=== PATIENT | male | born 1955 | race African-American/Black ===

== ENCOUNTER 2017-02-18 16:05 | Inpatient (IN) | payer MEDICARE, OTHER ==
--- NOTE | ~2017-02-18 | CO ---
Unit #: [id number] #: [id number] Patient: MILENA MONAE [id number] [facility] [address]. [place], [place] [address] [id number] I MR#: [id number] NAME: MILENA MONAE ROOM: 317 Age: 62 Sex: M Admission Date: 02/18/2017 : 1955 Attending Physician: Paco Bautista M.D. Primary Care Physician: [facility] Consultation Date: 02/20/2017 CONSULTATION REPORT REASON FOR CONSULTATION Alcohol abuse and confusion. HISTORY OF PRESENT ILLNESS Mr. Kennedy is a 62-year-old male, seen in room 317 bed 1 on 02/20/2017 at [facility]. The patient was confused. Dressed in hospital attire. The patient was trying to get out of the bed, unable to follow commands, unable to give any history, agitation, paranoid. The patient's information obtained from the nursing staff also. Chart reviewed. Labs reviewed. The patient was admitted on 02/18/2017 with right-sided weakness and hematemesis. The patient has a history of HIV/AIDS, hepatitis C, cirrhosis, alcohol abuse, hypertension. The patient was complaining of dysuria and worsening of right-sided weakness. The patient is a poor historian. PAST PSYCHIATRIC HISTORY Remarkable for history of alcohol abuse. No history of any inpatient psychiatric treatment known at this time. MEDICATIONS HISTORY The patient at home is on aspirin, Coreg, gabapentin, lisinopril, metformin, hydralazine. ALLERGIES None. MEDICAL HISTORY Remarkable for history of hepatitis C, AIDS/HIV, history of cirrhosis, atrial fibrillation, hypertension, diabetes, history of alcohol abuse. FAMILY HISTORY AND SOCIAL HISTORY The patient has a poor support system. No known history of any abuse. History of alcohol abuse as mentioned above. Denied use of any street drugs. REVIEW OF SYSTEMS Complete review of systems is unobtainable at this time. MENTAL STATUS EXAMINATION The patient's vital signs; temperature 97.8, pulse 69, respirations 18, blood pressure 170/99, oxygen saturation 99%. General appearance; the patient dressed in hospital attire, uncooperative, incoherent, somewhat agitated. Unable to give any reliable history. Attention span and concentration, poor. Speech, disorganized. Orientation, unable to Unit #: [id number] #: [id number] Patient: MILENA MONAE assess. Mood and affect, labile. Thought process, unable to assess. Thought content, guarded, paranoid. Recent and remote memory, poor. Language, poor. Fund of knowledge, impaired. Insight and judgment, impaired. DIAGNOSES Psychiatric: Delirium, F05; alcohol use disorder, severe, F10.20. Secondary diagnosis: Deferred. Medical diagnosis: Please refer to H and P. Stressors: Psychosocial stressor. ASSESSMENT AND PLAN 1. Recommending at this time to continue with current treatment and also advised one-on-one monitoring for safety of the patient. 2. If needed, consider low dose of Haldol for the above-mentioned symptoms of delirium. Continue with [facility] protocol. Please feel free to call if any questions, telephone #[phone]. Dictated by... Robert Villafuerte/jacinto TD: 02/22/2017 04:05 JOB #: [id number] CONSULTATION REPORT Page 1 of 1 X Dinesh Cortés MD CONSULTATION REPORT
--- NOTE | ~2017-02-18 | CT4 ---
[facility] A Service of [facility] RADIOLOGY TEXT RESULTS PATIENT: MIELNA MONAE LOCATION: C3A 317-01 : 59 UNIT #: [id number] AGE: [address]: Kiley Gross MD SEX: M ORDER DR: [id number] [facility] [address]. [place], [place] [address] [id number] E MR#: [id number] Acc #: [id number] NAME: MILENA MONAE : 1955 SEX: M STUDY DATE/TIME: 02/18/2017 18:40 UNIT: SABAS ROOM: STUDY DESCRIPTION: CT Abd and Pelv Wo Cont Attending Physician: Akbar Giles M.D. Ordering Physician: Akbar Giles M.D. Primary Care Physician: [facility] MEDICAL IMAGING REPORT This report is preliminary unless electronic signature is present EXAM CT abdomen and pelvis without IV contrast COMPARISON February 24, 2016 and February 10, 2006. INDICATION 62-year-old male with dysuria for 2 days. History of cirrhosis and HIV. Hepatitis C. FINDINGS Axial CT imaging of the abdomen and pelvis was performed without IV contrast. Coronal and sagittal reformats were constructed. Lack of IV contrast limits evaluation of adenopathy, vasculature and viscera. This CT exam was performed with one or more of the following radiation dose reduction techniques: automatic exposure control, adjustment of mA and/or kV according to patient size, and iterative reconstruction. Tiny fat-containing umbilical hernia. Multilevel mild to moderate degenerative facet disease of the lumbar spine. Multilevel disc height loss of the lumbar spine with marked degenerative endplate change at L2-L3 and to a lesser extent at L3-L4. Large posterior disc osteophyte complex is noted L2-L3, L3-L4 with small posterior disc protrusion L4-L5. Findings suggestive of prior CABG, incompletely imaged. Sternotomy wires are incompletely imaged. Sternotomy line is still visible and is well corticated. No evidence of sternal dehiscence on the current exam. The gallbladder is fluid distended but otherwise unremarkable. Unenhanced liver, pancreas, spleen and adrenal glands are unremarkable. No evidence of hydronephrosis or hydroureter. No renal or ureteral calculi. Urinary bladder is unremarkable. Top normal size of the prostate gland measuring up to 4.7 cm transverse. Large stool burden seen in the left colon and STS. [facility] A Service of [facility] RADIOLOGY TEXT RESULTS PATIENT: MLIENA MONAE LOCATION: C3A 317-01 : 59 UNIT #: [id number] AGE: [address]: Kiley Gross MD SEX: M ORDER DR: rectal vault. No evidence of acute inflammatory change of the bowel. No evidence of bowel obstruction. The appendix is not definitely seen. There are no secondary findings of an acute appendicitis. It is questioned if there is a retrocecal appendix, not well evaluated on the current study due to crowding of bowel loops. No free fluid or pneumoperitoneum. The abdominal aorta is tortuous but normal in caliber. Arterial calcifications extend into the iliac arteries and proximal femoral arteries. No adenopathy is seen on this noncontrast exam. IMPRESSION 1. No acute findings in the abdomen, pelvis or imaged lower chest. 2. Multilevel severe degenerative disc and endplate changes of the lumbar spine as described in the body of the report with multilevel posterior disc protrusions. 3. Changes suggestive of prior CABG, incompletely imaged. 4. Fluid distension of the gallbladder without secondary findings of an acute cholecystitis. 5. The appendix is favored to be retrocecal in location but not well evaluated. There are no secondary findings to suggest an acute appendicitis. Clinical correlation recommended. 6. Top normal size of the prostate gland with normal shape and contour. This may reflect mild benign prostatic hypertrophy. 7. Large stool burden in the left colon and rectal vault. No evidence of bowel obstruction or acute inflammatory change. 8. Not mentioned specifically in the body of the report there is likely a small left scrotal hydrocele. Dictated by... Jose Solorio M.D. THIS IS AN ELECTRONICALLY VERIFIED REPORT Jose Solorio M.D. at 02/19/2017 3:01 PM KELIN/sherita TD: 02/18/2017 23:10 JOB #: [id number] MEDICAL IMAGING REPORT Page 1 of 1 COPY
--- NOTE | ~2017-02-18 | MR18 ---
[facility] A Service of [facility] & [facility] RADIOLOGY TEXT RESULTS PATIENT: MILENA MONAE LOCATION: C3A 317-01 : 59 UNIT #: [id number] AGE: [address]: Paco Bautista MD SEX: M ORDER DR: [id number] [facility] [address] [place], [place] [address] [id number] I MR#: [id number] Acc #: [id number] NAME: MILENA MONAE : 1955 SEX: M STUDY DATE/TIME: 02/20/2017 14:05 UNIT: C3A PCU ROOM: 317 STUDY DESCRIPTION: MR Brain Wo Contrast Attending Physician: Paco Bautista M.D. Ordering Physician: Paco Bautista M.D. Primary Care Physician: [facility], [facility]. MRI CENTER REPORT This report is preliminary unless electronic signature is present. EXAM Brain MRI without HISTORY Altered mental status. Patient combative despite having been given Ativan. Technologist notes this is a very limited study submitted for review. COMMENT MRI of the brain was performed without contrast. Delayed sequences were utilized, and the study is still very limited. Axial diffusion imaging obtained as well as axial BLADE T1 and T2 and FLAIR imaging. There is a prior from 12/22/2015. There is no evidence for a recent ischemic insult on the diffusion series. There is no gross midline shift or extraaxial fluid collection. There are probably chronic lacunar insults in the basal ganglia to thalami and probably at least moderate white matter disease due to small vessel disease. Signal abnormality in the brainstem is harder to characterize. I suspect there is some left-sided Wallerian degeneration with asymmetric volume loss in the left cerebral peduncle, but there is probably also small vessel disease involving the brainstem. At least some of this disease was present previously. I cannot compare to prior accurately, given the amount of motion. There is fluid or inflammatory change in the right side mastoid air cells. IMPRESSION 1. Severely limited study due to the patient's motion discussed above. 2. No evidence for a recent ischemic insult on the diffusion series. 3. Findings are most suggestive of moderate probable sequelae of small STS. [facility] A Service of [facility] & [facility] RADIOLOGY TEXT RESULTS PATIENT: MILENA MONAE LOCATION: A 317-01 : 59 UNIT #: [id number] AGE: [address]: Paco Bautista MD SEX: M ORDER DR: vessel disease. STAT * RESULT Dictated by... Sarah Taylor M.D. THIS IS AN ELECTRONICALLY VERIFIED REPORT Sarah Taylor M.D. at 02/20/2017 7:19 PM Marin TD: 02/20/2017 17:55 JOB #: [id number] MRI CENTER REPORT Page 1 of 1 COPY
--- NOTE | ~2017-02-18 | CT71 ---
[facility] A Service of [facility] RADIOLOGY TEXT RESULTS PATIENT: MILENA MONAE LOCATION: A 317-01 : 59 UNIT #: [id number] AGE: [address]: Paco Bautista MD SEX: M ORDER DR: [id number] [facility] [address]. [place], [place] [address] [id number] E MR#: [id number] Acc #: [id number] NAME: MILENA MONAE : 1955 SEX: M STUDY DATE/TIME: 02/18/2017 18:38 UNIT: [facility] ROOM: STUDY DESCRIPTION: CT Head Wo Contrast Attending Physician: Akbar Giles M.D. Ordering Physician: Akbar Giles M.D. Primary Care Physician: [facility], [facility]. MEDICAL IMAGING REPORT This report is preliminary unless electronic signature is present EXAM CT head 02/18/2017. HISTORY Right sided weakness today. Called EMS for burning urination x 2 days. History of cirrhosis, HIV, atrial fibrillation, hepatitis C, diabetes. TECHNIQUE This CT exam was performed with one or more of the following radiation dose reduction techniques: automatic exposure control, adjustment of mA and/or kV according to patient size, and iterative reconstruction. CT head performed skull base through vertex without intravenous contrast. Comparison 12/22/2015. FINDINGS Brainstem unremarkable. Cerebellum and cerebral hemispheres show overall preservation of cristobal matter - white matter differentiation. No hemorrhage. No evidence of acute cortical ischemia. The midline structures are nondisplaced. The basal ganglia show no acute abnormality. There is a chronic lacunar infarct in the left putamen. No acute basal ganglia abnormality. Ventricles, cisterns and sulci show mild generalized enlargement. Mild periventricular deep white matter tract probable sequelae of chronic microvascular ischemia. No intra or extraaxial mass effect or abnormal intracranial fluid collection. Cavernous carotid distal vertebral arterial calcifications. Intraorbital soft tissues unremarkable. Visualized paranasal sinuses clear. Opacification of some inferior right mastoid air cells with some small air-fluid levels present suggesting acute mastoiditis. IMPRESSION 1. No acute abnormality is seen in the brain. If the patient has STS. [facility] A Service of [facility] RADIOLOGY TEXT RESULTS PATIENT: MILENA MONAE LOCATION: C3A 317-01 : 59 UNIT #: [id number] AGE: [address]: Paco Bautista MD SEX: M ORDER DR: ongoing neurologic symptoms, consider follow up imaging preferably with MRI if the patient is a candidate. 2. Chronic changes include the following: Mild periventricular deep white matter tract probable sequelae of chronic microvascular ischemia, chronic lacunar infarct left putamen, extensive cavernous carotid distal vertebral arterial calcifications, mild generalized atrophy. 3. Mucosal thickening, opacification and air fluid levels in some right mastoid air cells. New compared to prior study and indicative of acute mastoiditis. Correlate clinically. Consider ENT consultation followup for management. Dictated by... Saji Mishra M.D. THIS IS AN ELECTRONICALLY VERIFIED REPORT Saji Mishra M.D. at 02/21/2017 8:26 AM iHram TD: 02/18/2017 23:07 JOB #: [id number] MEDICAL IMAGING REPORT Page 1 of 1 COPY
--- NOTE | ~2017-02-18 | EKG ---
PATIENT: MILENA MONAE UNIT #: [id number] Ventricular Rate: 103 BPM Atrial Rate: 103 BPM P-R Interval: 150 ms QRS Duration: 94 ms Q-T Interval: 370 ms QTC Calculation(Bezet): 484 ms P [place]: 51 degrees Calculated R [place]: 88 degrees Calculated T [place]: 59 degrees Diagnosis Line: Sinus tachycardia Diagnosis Line: Poor R wave progression questionable lead position Diagnosis Line: or body habitus Diagnosis Line: Nonspecific ST and T wave abnormality Diagnosis Line: Abnormal ECG Diagnosis Line: When compared with ECG of 22-DEC-2015 12:00, Diagnosis Line: ST abnormalities worse Diagnosis Line: Confirmed by DAFNE JACOBSON MD ([id number]) on Diagnosis Line: 02/18/2017 11:00:23 PM INTERPRETING MD: MELISA
--- NOTE | ~2017-02-18 | CO ---
Unit #: [id number] #: [id number] Patient: MILENA MONAE [id number] [address] [place], [place] [address] [id number] I MR#: [id number] NAME: MILENA MONAE ROOM: [facility] Age: Sex: M Admission Date: 02/18/2017 : 1955 Attending Physician: Kiley Gross M.D. Primary Care Physician: [facility] CONSULTATION REPORT REASON FOR CONSULTATION Management of HIV/AIDS. HISTORY OF PRESENT ILLNESS This is a 62-year-old male who is a very poor historian. He has nonspecific complaints. The chart has been reviewed, as well as continued interviews with the patient. Per the chart, the patient has a history of HIV/AIDS, hepatitis C, alcohol abuse, cirrhosis and CVA. He tells me he came to the hospital because his blood glucose was low. The patient reports that he was not vomiting at home. He is unaware if he had any fever. He is unaware if he had any headache. He does report that he does have some mild abdominal pain, but no diarrhea. While the patient was in the emergency room he began to have episodes of hematemesis and was admitted for further evaluation. Workup did not show any fever or leukocytosis, but there was some concern that the patient had a urinary tract infection and a CT scan of the head was also done, which was concerning for sinusitis/mastoiditis. The patient was placed on Rocephin and infectious disease was asked to evaluate for further management. PAST MEDICAL HISTORY Unknown, except for that previously mentioned in history of present illness. HIV/AIDS. However, the patient reports that he has not had medications for a long period of time. He is unable to get any antiretroviral medications. PAST SURGICAL HISTORY Unknown. SOCIAL HISTORY The patient denies to me any alcohol abuse. However, it is noted that he does have a history of alcoholic cirrhosis. He denies to me any tobacco or IV drug abuse. ALLERGIES The patient denies any allergies, but he reports that he is unaware. CURRENT MEDICATIONS The patient is currently on Rocephin. No other antibiotics or steroids have been given. For other medications, please refer to the patient's MAR. REVIEW OF SYSTEMS Difficult to obtain as the patient is a poor historian and fairly nonspecific. Negative except for that previously mentioned in history of present illness. He again denies any headache. He is unaware if he has Unit #: [id number] #: [id number] Patient: MILENA MONAE any fever at home. He is unaware if he had any chills or sweats. He denied to me any urinary symptoms, but was fairly nonspecific. He does report some left lower extremity pain. PHYSICAL EXAMINATION GENERAL: This is an awake male in no apparent distress, who is resting in the bed. VITALS: Temperature 97.5, pulse 62, blood pressure 181/125 and respiratory rate 18. He has no frontal or maxillary sinusitis. HEENT: His pupils are sluggish. NECK: Supple. LUNGS: Clear to auscultation. Diminished in the bases, but no wheezes or rhonchi noted. HEART: S1 and S2. Regular rate and rhythm. ABDOMEN: Hypoactive bowel sounds. There is some tenderness in all four quadrants to palpation. EXTREMITIES: No clubbing, cyanosis or edema. He does not appear to have any nonhealing wounds. DIAGNOSTIC STUDIES LABORATORY: BUN 11, creatinine 0.9, sodium 135, potassium 3.1, chloride 97, CO2 31, bilirubin 1.6, AST 27, ALT 29, alkaline phosphatase 67, ammonia 20, lactic acid 2.3 which is up from admission of 2.2, alcohol level 111. INR 1.0. White blood cell count 6.5, hemoglobin 16.7, hematocrit 47.8, platelets 163. Urine tox screen is negative. Urinalysis shows white blood cells 10-25, 5-10 RBCs, negative nitrates, 1+ protein, glucose 500, yeast present. Blood cultures and urine cultures are currently pending. DICTATION STOPPED Dictated by... Vale Escobar A.P.R.N. for Sundar Donohue M.D. Virgilio TD: 02/19/2017 10:05 JOB #: [id number] CONSULTATION REPORT Page 1 of 1 X X CONSULTATION REPORT
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
--- NOTE | ~2017-02-18 | CR72 ---
[facility] A Service of [facility] & [facility] RADIOLOGY TEXT RESULTS PATIENT: MILENA MONAE LOCATION: [facility] : 59 UNIT #: [id number] AGE: [address]: Akbar Giles MD SEX: M ORDER DR: [id number] [facility] [address] [place], [place] [address] [id number] MR#: [id number] Acc #: [id number] NAME: MILENA MONAE : 1955 SEX: M STUDY DATE/TIME: 02/18/2017 17:41 UNIT: [facility] ROOM: STUDY DESCRIPTION: CR Chest Single View Portable Attending Physician: Akbar Giles M.D. Ordering Physician: Akbar Giles M.D. MEDICAL IMAGING REPORT This report is preliminary unless electronic signature is present EXAM Portable chest HISTORY Chest pain and right side weakness today. FINDINGS Cardiac and mediastinal contours are stable compared to 12/22/2015, including mildly prominent and tortuous aortic arch. Sternotomy. No airspace infiltrates or effusions. Mild elevation of the right hemidiaphragm. IMPRESSION No acute findings. Dictated by... Talha Botello M.D. THIS IS AN ELECTRONICALLY VERIFIED REPORT Talha Botello M.D. at 02/18/2017 11:52 PM DFL/pcl TD: 02/18/2017 22:21 JOB #: [id number] MEDICAL IMAGING REPORT Page 1 of 1 COPY
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
--- NOTE | ~2017-02-18 | CO ---
Unit #: [id number] #: [id number] Patient: MILENA MAYS [id number] [address] [place], [place] [address] [id number] MR#: [id number] NAME: MILENA MAYS ROOM: 317 Age: 62 Sex: M Admission Date: 02/18/2017 : 1955 Attending Physician: Paco Bautista M.D. Primary Care Physician: [facility] Consultation Date: 02/21/2017 CONSULTATION REPORT REASON FOR CONSULTATION Followup. DISCUSSION Mr. Antonino Mays is a 62-year-old male, seen in room 317 bed 1 on 02/21/2017. The patient dressed in hospital attire, sitting comfortably in a recliner chair, able to answer some of the question about time, place, and person, but still poor historian. The patient needing redirection, but no agitation. The patient has a sitter. The patient's vital signs; temperature 97.9, pulse 86, respirations 20, blood pressure 175/118, oxygen saturation 98%. The patient has a history of alcohol abuse. Still somewhat confused, therefore, needing a sitter. Denied any suicidal or homicidal ideation. REVIEW OF SYSTEMS Complete review of systems unremarkable except as mentioned above. MENTAL STATUS EXAMINATION Vital signs; temperature 97.9, pulse 86, respirations 20, blood pressure 175/118, oxygen saturation 100%. General appearance; the patient dressed in hospital attire, sitting comfortably in chair in a recliner. Attention span and concentration, poor. Speech is slow, long pauses. Orientation in self and place. Mood and affect, labile. Thought process, circumstantial. Thought content, guarded, paranoid, confused, but unable to answer question about suicidal or homicidal ideation. Recent and remote memory, impaired. Language fair. Fund of knowledge, poor. Insight and judgment, impaired. 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 ASSESSMENT AND PLAN 1. Supportive psychotherapy and psychoeducation provided to the patient, but the patient unable to comprehend much. 2. Advised at this time to continue with one-on-one monitoring with sitter. Continue with current treatment for precautions. Continue with detox protocol. Please feel free to call if any questions telephone #[phone]. Unit #: [id number] #: [id number] Patient: MILENA MAYS Dictated by... Robert Villafuerte/jacinto TD: 02/22/2017 02:48 JOB #: [id number] CONSULTATION REPORT Page 1 of 1 X Dinesh Cortés MD X CONSULTATION REPORT
--- NOTE | ~2017-02-18 | MR18 ---
[facility] A Service of [facility] & [facility] RADIOLOGY TEXT RESULTS PATIENT: MILENA MONAE LOCATION: [facility] 317-01 : [birth year] UNIT #: [id number] AGE: [address]: Paco Bautista MD SEX: M ORDER DR: [id number] [facility] [address]. [place], [place] [address] [id number] MR#: [id number] Acc #: [id number] NAME: MILENA MONAE : 1955 SEX: M STUDY DATE/TIME: 02/20/2017 23:14 UNIT: [address] ROOM: [facility] STUDY DESCRIPTION: MR Brain Wo Contrast Attending Physician: Paco Bautista M.D. Ordering Physician: Paco Bautista M.D. Primary Care Physician: [facility]. MRI CENTER REPORT This report is preliminary unless electronic signature is present. EXAM Brain MRI without contrast, 02/20/2017 at 23:23 p.m. PROCEDURE Unenhanced brain MRI COMPARISON Unenhanced brain MRI at 02/20/2017 at 14:17 p.m. CLINICAL HISTORY Right-sided weakness. Onset for one day. FINDINGS Nondiagnostic heavily motion degraded exam. Dictated by... Johnnie Hassna M.D. THIS IS AN ELECTRONICALLY VERIFIED REPORT Johnnie Hassan M.D. at 02/22/2017 2:14 PM RANDAL/audi TD: 02/21/2017 08:03 JOB #: [id number] MRI CENTER REPORT Page 1 of 1 COPY
[~2017-02-18 16:05] MED LIST: ALBUTEROL17 GM INH; COMBIVENT INH14.7 GM INH; LISINOPRIL-HCTZ1 T14 PO; METFORMIN PO
[2017-02-18 17:36] LABS: BASOPHIL% 0.4 % (0-2.5); EOSINOPHIL# 0.1 X10e3 (0-0.7); EOSINOPHIL% 2.1 % (0.0-7.0); HEMATOCRIT 47.8 % (38.0-50.0); HEMOGLOBIN 16.7 gm/dL (13.0-16.0); LYMPHOCYTE# 2.3 X10e3 (1.0-3.5); LYMPHOCYTE% 36.2 % (17.0-45.0); MEAN CELL VOLUME 90.9 FL (83-96); MEAN CORPUSCULAR HEMOGLOBIN 31.7 PG (28-34); MEAN CORPUSCULAR HGB CONC 34.9 g/dL (30-36); MONOCYTE# 0.6 X10e3 (0-1.0); MONOCYTE% 8.5 % (3.0-12.0); NEUTROPHIL# 3.4 X10e3 (1.5-7.1); NEUTROPHIL% 52.8 % (40-75); PLATELET COUNT 163 X10e3 (140-420); RED BLOOD COUNT 5.26 X10e (3.90-5.60); RED CELL DISTRIBUTION WIDTH 12.8 % (11.0-15.5); WHITE BLOOD COUNT 6.5 X10e3 (4.0-10.5)
[2017-02-18 17:42] LABS: DIFF IND NO
[2017-02-18 17:50] LABS: PARTIAL THROMBOPLASTIN TIME 28.2 SECONDS (23.5-31.3); PROTHROMBIN TIME (PATIENT) 10.7 SECONDS (9.6-11.5)
[2017-02-18 17:50] LABS: POC - CKMB 2.3 ng/mL (0.0-7.9); POC - TROPONIN <0.05 ng/mL (<=0.05)
[2017-02-18 18:03] LABS: ALBUMIN SERUM 3.8 g/dL (3.5-5.0); BILIRUBIN, DIRECT 0.3 mg/dL (0.0-0.2); BILIRUBIN,INDIRECT 0.8 mg/dL (0.0-0.9); BILIRUBIN,TOTAL 1.1 mg/dL (0.2-2.0); BUN/CREATININE RATIO 13.75; CALCIUM SERUM 9.9 mg/dL (8.4-10.2); CREATININE SERUM 0.8 mg/dL (0.6-1.4); GLOM FILT RATE Estimated 112.6 mL/min (>60); PROTEIN TOTAL SERUM 7.9 g/dL (6.0-8.3)
[2017-02-18 18:05] LABS: POTASSIUM 2.7 mmol/L (3.5-5.1)
[2017-02-18 18:07] LABS: URINE SOURCE CLEAN CATCH
[2017-02-18 18:09] LABS: CULTURE INDICATED? YES; URINE APPEARANCE CLOUDY; URINE BACTERIA AUWI NEG (NEGATIVE); URINE BLOOD NEG (NEG); URINE COLOR DK YELLOW; URINE GLUCOSE 500 MG/DL (NEG); URINE KETONE TRACE (NEG); URINE LEUKOCYTE ESTERASE 1+ (NEG); URINE NITRATE NEG (NEG); URINE PROTEIN 1+ (NEG); URINE SPECIFIC GRAVITY 1.022 (1.003-1.035); URINE SQUAMOUS EPITHELIAL CELL FEW /[HPF]
[2017-02-18 18:21] LABS: URINE BILIRUBIN NEG (NEG)
[2017-02-18 18:22] LABS: URINE MUCUS PRESENT
[2017-02-18 18:27] LABS: POC - TROPONIN <0.05 ng/mL (<=0.05)
[2017-02-18 18:28] LABS: AMPHETAMINE NEG (NEG); BARBITURATES NEG (NEG); BENZODIAZEPINES NEG (NEG); COCAINE NEG (NEG); MARIJUANA NEG (NEG); OPIATES NEG (NEG); TRICYCLIC ANTIDEPRESSANTS NEG (NEG); U METHADONE NEG (NEG)
[2017-02-19] MEDS ORDERED: ALBUTEROL17 GM INH (01:25)
[2017-02-19] MEDS ORDERED: ZESTORETIC 20-1 EAC1 PO (01:25)
[2017-02-19] MEDS ORDERED: METFORMIN PO (01:25)
[2017-02-19 03:01] LABS: ALBUMIN SERUM 3.5 g/dL (3.5-5.0); BILIRUBIN,TOTAL 1.6 mg/dL (0.2-2.0); BUN/CREATININE RATIO 12.22; CREATININE SERUM 0.9 mg/dL (0.6-1.4); GLOM FILT RATE Estimated 107.2 mL/min (>60); POTASSIUM 3.1 mmol/L (3.5-5.1); PROTEIN TOTAL SERUM 7.2 g/dL (6.0-8.3)
[2017-02-19 03:23] LABS: THYROID STIMULATING HORMONE 0.89 uIU/ml (0.34-5.60)
[2017-02-19 03:30] LABS: FREE THYROXIN (T4) 0.99 ng/dL (0.58-1.64)
[2017-02-20 07:46] LABS: BASOPHIL% 0.6 % (0-2.5); EOSINOPHIL# 0.2 X10e3 (0-0.7); EOSINOPHIL% 5.5 % (0.0-7.0); HEMATOCRIT 39.2 % (38.0-50.0); LYMPHOCYTE# 1.5 X10e3 (1.0-3.5); LYMPHOCYTE% 37.8 % (17.0-45.0); MEAN CELL VOLUME 91.3 FL (83-96); MEAN CORPUSCULAR HEMOGLOBIN 31.3 PG (28-34); MEAN CORPUSCULAR HGB CONC 34.3 g/dL (30-36); MEAN PLATELET VOLUME 8.9 FL (6.5-11.5); MONOCYTE# 0.4 X10e3 (0-1.0); MONOCYTE% 9.2 % (3.0-12.0); NEUTROPHIL# 1.8 X10e3 (1.5-7.1); NEUTROPHIL% 46.9 % (40-75); PLATELET COUNT 118 X10e3 (140-420); RED BLOOD COUNT 4.29 X10e (3.90-5.60); WHITE BLOOD COUNT 3.9 X10e3 (4.0-10.5)
[2017-02-20 07:53] LABS: DIFF IND NO; HEMOGLOBIN 13.5 gm/dL (13.0-16.0)
[2017-02-20 08:42] LABS: ALBUMIN SERUM 2.9 g/dL (3.5-5.0); BUN/CREATININE RATIO 6.66; CALCIUM SERUM 8.7 mg/dL (8.4-10.2); CREATININE SERUM 0.9 mg/dL (0.6-1.4); GLOM FILT RATE Estimated 107.2 mL/min (>60); MAGNESIUM 1.8 mg/dL (1.6-3.0); POTASSIUM 3.2 mmol/L (3.5-5.1); PROTEIN TOTAL SERUM 5.9 g/dL (6.0-8.3)
[2017-02-21 07:17] LABS: BASOPHIL% 0.7 % (0-2.5); EOSINOPHIL# 0.4 X10e3 (0-0.7); EOSINOPHIL% 7.5 % (0.0-7.0); HEMATOCRIT 39.9 % (38.0-50.0); HEMOGLOBIN 13.9 gm/dL (13.0-16.0); LYMPHOCYTE# 2.4 X10e3 (1.0-3.5); LYMPHOCYTE% 46.4 % (17.0-45.0); MEAN CELL VOLUME 90.8 FL (83-96); MEAN CORPUSCULAR HEMOGLOBIN 31.5 PG (28-34); MEAN CORPUSCULAR HGB CONC 34.7 g/dL (30-36); MEAN PLATELET VOLUME 8.2 FL (6.5-11.5); MONOCYTE# 0.5 X10e3 (0-1.0); MONOCYTE% 9.1 % (3.0-12.0); NEUTROPHIL# 1.8 X10e3 (1.5-7.1); NEUTROPHIL% 36.3 % (40-75); PLATELET COUNT 119 X10e3 (140-420); RED CELL DISTRIBUTION WIDTH 13.4 % (11.0-15.5); WHITE BLOOD COUNT 5.1 X10e3 (4.0-10.5)
[2017-02-21 07:18] LABS: DIFF IND NO
[2017-02-21 07:56] LABS: CALCIUM SERUM 8.8 mg/dL (8.4-10.2); CARBON DIOXIDE 26 mmol/L (22-31); CHLORIDE 100 mmol/L (100-111); CREATININE SERUM 0.7 mg/dL (0.6-1.4); GLOM FILT RATE Estimated 118.9 mL/min (>60); GLUCOSE FASTING 187 mg/dL (70-110); MAGNESIUM 1.9 mg/dL (1.6-3.0); POTASSIUM 3.6 mmol/L (3.5-5.1); SODIUM 132 mmol/L (135-145)
[2017-02-21 07:59] LABS: BLOOD UREA NITROGEN <5 mg/dL (9-23); BUN/CREATININE RATIO 7.14
[2017-02-21 15:56] LABS: FOLATE (FOLIC ACID) 9.7 ng/mL (>5.8)
[2017-02-22 06:10] LABS: HEMATOCRIT 38.9 % (38.0-50.0); HEMOGLOBIN 13.4 gm/dL (13.0-16.0); MEAN CELL VOLUME 90.8 FL (83-96); MEAN CORPUSCULAR HEMOGLOBIN 31.3 PG (28-34); MEAN CORPUSCULAR HGB CONC 34.4 g/dL (30-36); MEAN PLATELET VOLUME 8.6 FL (6.5-11.5); RED BLOOD COUNT 4.28 X10e (3.90-5.60); RED CELL DISTRIBUTION WIDTH 13.3 % (11.0-15.5); WHITE BLOOD COUNT 5.3 X10e3 (4.0-10.5)
[2017-02-22 07:00] LABS: CALCIUM SERUM 9.1 mg/dL (8.4-10.2); CARBON DIOXIDE 28 mmol/L (22-31); CHLORIDE 103 mmol/L (100-111); CREATININE SERUM 0.8 mg/dL (0.6-1.4); GLOM FILT RATE Estimated 112.6 mL/min (>60); GLUCOSE FASTING 204 mg/dL (70-110); POTASSIUM 3.4 mmol/L (3.5-5.1); SODIUM 137 mmol/L (135-145)
[2017-02-22 07:07] LABS: BLOOD UREA NITROGEN <5 mg/dL (9-23); BUN/CREATININE RATIO 6.25
[2017-02-22] MEDS ORDERED: CARVEDILOL25 MG PO (12:55)
[2017-02-22] MEDS ORDERED: THIAMINE HCL100 MG PO (12:56)
[2017-02-22] MEDS ORDERED: PROTONIX PO (12:56)
[2017-02-22] MEDS ORDERED: MULTIVITAMINS1 EAC4 PO (12:56)
[2017-02-22] MEDS ORDERED: VITAMIN B12 PO (12:57)
[2017-02-22] MEDS ORDERED: OMNICEF300 M1 PO (12:58)
[2017-02-27 16:36] LABS: CD4 % (PNL) 34.22
[2017-02-28 09:32] LABS: HIV1 LOG COPIES/ML 4.63
== END 2017-02-22 19:39 | disposition home health service (06) | DRG 974 ==
LOC: CED 16:05 → CEDOF 22:58 → CED 23:48 → C3A PCU 23:48 → CEDOF 23:48 → C3A PCU 02-19 01:09 → CEDOF 02-19 01:09 → C3A PCU 02-20 07:40
PROVIDERS: Emergency Medicine; Family Medicine; Internal Medicine; Physician Assistant Medical
DX: A41.9 Sepsis, unspecified organism (principal); B20 Human immunodeficiency virus [HIV] disease; G92 Toxic encephalopathy; E43 Unspecified severe protein-calorie malnutrition; K92.0 Hematemesis; F05 Delirium due to known physiological condition; E11.8 Type 2 diabetes mellitus with unspecified complications; H70.001 Acute mastoiditis without complications, right ear; I69.951 Hemiplegia and hemiparesis following unspecified cerebrovascular disease affecting right dominant side; F02.81 Dementia in other diseases classified elsewhere, unspecified severity, with behavioral disturbance; Z68.1 Body mass index [BMI] 19.9 or less, adult; N39.0 Urinary tract infection, site not specified; B19.20 Unspecified viral hepatitis C without hepatic coma; I48.91 Unspecified atrial fibrillation; I10 Essential (primary) hypertension; K70.30 Alcoholic cirrhosis of liver without ascites; E87.6 Hypokalemia; F10.229 Alcohol dependence with intoxication, unspecified; Z91.19 Patient's noncompliance with other medical treatment and regimen; G31.2 Degeneration of nervous system due to alcohol; Z79.82 Long term (current) use of aspirin; Z79.84 Long term (current) use of oral hypoglycemic drugs; E83.42 Hypomagnesemia
CPT/HCPCS: 36415; 70450; 70551; 71010; 74176; 80048; 80053; 80076; 80307; 81003; 82140; 82308; 82553; 82607; 82746; 82947; 83605; 83735; 84132; 84439; 84443; 84484; 85025; 85027; 85610; 85730; 86360; 86361; 86592; 86850; 86900; 86901; 87040; 87086; 87536; 92610; 93005; 94760; 96361; 96365; 96375; 97116; 97161; 97166; 97530; 97535; 99285; C9113; G0480; G8987-GO; G8988-GO; G8989-GO; G8996-GN; G8997-GN; G8998-GN; J0696; J1630; J1815; J2060; J2405; J3370; J3411; J3475; J7042